=== PATIENT | female | born 1985 | race Hispanic/Latino ===

== ENCOUNTER 2017-06-01 07:44 | Emergency (ER) | payer SELFPAY ==
[~2017-06-01] VITALS: Ht 154.9 cm; Wt 79.4 kg
[2017-06-01 08:37] VITALS: BP 130/77
== END 2017-06-01 08:25 | disposition home or self-care (01) ==
LOC: FSED 07:44
DX: R50.9 Fever, unspecified (principal); R05 Cough
CPT/HCPCS: 87400; 99282